=== PATIENT | male | born 1965 | race American Indian/Alaskan Native ===

== ENCOUNTER 2017-01-25 17:06 | Emergency (ER) | payer MEDICARE ==
[2017-01-25] MEDS ORDERED: TRIMOX PO ONE (19:37)
[2017-01-25] MEDS ORDERED: TYLENOL #3 PO ONE (19:37)
[2017-01-25 20:05] VITALS: BP 129/83
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
== END 2017-01-25 20:04 | disposition home or self-care (01) ==
LOC: ED 17:06
DX: K08.89 Other specified disorders of teeth and supporting structures (principal); G43.909 Migraine, unspecified, not intractable, without status migrainosus; F17.210 Nicotine dependence, cigarettes, uncomplicated; F12.10 Cannabis abuse, uncomplicated; F14.10 Cocaine abuse, uncomplicated; F11.10 Opioid abuse, uncomplicated; Z88.8 Allergy status to other drugs, medicaments and biological substances; Z91.030 Bee allergy status; Z91.018 Allergy to other foods
CPT/HCPCS: 99282

== ENCOUNTER 2017-05-27 09:59 | Emergency (ER) | payer MEDICARE ==
[2017-05-27 10:52] VITALS: BP 120/79
[2017-05-27] MEDS ORDERED: MOTRIN PO ONE (12:57)
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
[2017-05-27] MEDS ORDERED: ROCEPHIN IM ONE (13:24)
[2017-05-27] MEDS ORDERED: ZITHROMAX PO ONE (13:24)
[2017-05-27] MEDS ORDERED: XYLOCAINE 1% MPF 5 mL INFILTRATI ONE (13:24)
[2017-05-27 13:29] LABS: Bilirubin,Urine NEG (Negative); Blood,Urine NEG (Negative); Ketones,Urine NEG (Negative); Leukocyte Esterase,Urine NEG (Negative); Mucus,Urine FEW /HPF; Nitrite,Urine NEG (Negative); Protein,Urine <15 mg/dL mg/dL (Negative); WBC,Urine < 1.0 /HPF (0.0-6.0)
== END 2017-05-27 13:52 | disposition home or self-care (01) ==
LOC: ED 09:59
DX: K05.10 Chronic gingivitis, plaque induced (principal); K02.9 Dental caries, unspecified; G43.909 Migraine, unspecified, not intractable, without status migrainosus; R56.9 Unspecified convulsions; Z87.891 Personal history of nicotine dependence; Z91.030 Bee allergy status; Z88.8 Allergy status to other drugs, medicaments and biological substances; Z91.018 Allergy to other foods
CPT/HCPCS: 81001; 87591; 96372; 99283; J0696

== ENCOUNTER 2017-12-04 16:18 | Emergency (ER) | payer MEDICARE ==
[2017-12-04 17:00] LABS: Basophils # (Auto) 0.1 K/mm3 (0.0-0.1); Basophils % (Auto) 1.2 % (0.0-1.8); Eosinophils # (Auto) 0.1 K/mm3 (0.0-0.4); Eosinophils % (Auto) 2.8 % (0.0-4.3); Hematocrit 40.5 % (35.5-45.6); Hemoglobin 13.1 gm/dl (11.8-15.2); Lymphocytes # (Auto) 1.6 K/mm3 (1.2-5.4); Lymphocytes % (Auto) 29.7 % (13.4-35.0); Mean Corpuscular HGB Conc 33 % (32-34); Mean Corpuscular Hemoglobin 31 pg (28-32); Mean Corpuscular Volume 94 fl (84-94); Monocytes # (Auto) 0.7 K/mm3 (0.0-0.8); Monocytes % (Auto) 12.5 % (0.0-7.3); Platelet Count 331 K/mm3 (140-440); Red Blood Count 4.31 M/mm3 (3.65-5.03); Red Cell Distribution Width 14.3 % (13.2-15.2)
[2017-12-04 17:28] LABS: BUN/Creatinine Ratio 15; Blood Urea Nitrogen 16 mg/dL (9-20); Calcium 9.3 mg/dL (8.4-10.2); Hemolysis Index 10
[2017-12-04 17:58] LABS: Bilirubin,Urine NEG (Negative); Blood,Urine NEG (Negative); Color,Urine Yellow (Yellow); Mucus,Urine FEW /HPF; Protein,Urine <15 mg/dL mg/dL (Negative); Urobilinogen,Urine < 2.0 mg/dL (<2.0)
[2017-12-04 18:18] LABS: Amphetamine Screen,Urine PRESUMPTIVE NEGATIVE; Benzodiazepines Screen,Urine PRESUMPTIVE NEGATIVE; Cannabinoid Screen,Urine PRESUMPTIVE NEGATIVE; Cocaine Screen,Urine PRESUMPTIVE NEGATIVE; Methadone Screen,Urine PRESUMPTIVE NEGATIVE; Opiate Screen,Urine PRESUMPTIVE NEGATIVE
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
[2017-12-05 00:01] VITALS: BP 118/64
== END 2017-12-04 22:15 | disposition other institution (70) ==
LOC: ED 16:18
DX: Z02.89 Encounter for other administrative examinations (principal); F20.9 Schizophrenia, unspecified; G43.909 Migraine, unspecified, not intractable, without status migrainosus; F17.200 Nicotine dependence, unspecified, uncomplicated
CPT/HCPCS: 36415; 80048; 80164; 80307; 81001; 85025; 99283; G0480; 80320